=== PATIENT | male | born 1955 | race Caucasian/White ===

== ENCOUNTER 2022-08-23 11:45 | Emergency (ER) | payer MEDICARE ==
[~2022-08-23] VITALS: Ht 182.9 cm; Wt 104.0 kg
[2022-08-23 13:25] VITALS: BP 134/78
== END 2022-08-23 13:20 | disposition home or self-care (01) ==
LOC: ED 11:45
DX: S61.311A Laceration without foreign body of left index finger with damage to nail, initial encounter (principal); S61.313A Laceration without foreign body of left middle finger with damage to nail, initial encounter; S62.631A Displaced fracture of distal phalanx of left index finger, initial encounter for closed fracture; S62.633A Displaced fracture of distal phalanx of left middle finger, initial encounter for closed fracture; W31.2XXA Contact with powered woodworking and forming machines, initial encounter; Y92.009 Unspecified place in unspecified non-institutional (private) residence as the place of occurrence of the external cause

== ENCOUNTER 2023-11-19 06:42 | Day surgery (SDC) | payer MEDICARE ==
[~2023-11-19] VITALS: Ht 177.8 cm; Wt 93.0 kg
[~2023-11-19 06:42] MED LIST: ALLOPURINOL200 MG PO; ATORVASTATIN CA20 MG PO; BAYER ASPIRIN E81 MG PO; FISH OIL1000 M1 PO; LISINOPRIL20 M1 PO; MENS PO; MULTIV PO; TOPROL XL25 M1 PO; VIAGRA100 MG PO
[2023-11-19] MEDS ORDERED: BACITRACIN BASE 15 GM TUBE ONE (06:48)
[2023-11-19] MEDS ORDERED: BUPIVACAINE HCL PF 0.5 % 50 MG/10 ML SDV ONE (06:51)
[2023-11-19] MEDS ORDERED: FAMOTIDINE 10MG/ML 2ML SDV IV ONE (06:56)
[2023-11-19] MEDS ORDERED: LACTATED RINGER'S 1,000 ML IV ONE (06:56)
[2023-11-19] MEDS ORDERED: SODIUM CHLORIDE 0.9% 0 ML IV ONE (07:42)
[2023-11-19] MEDS ORDERED: ceFAZolin Sodium 2 GM/VIAL SDV ONE (07:42)
[2023-11-19] MEDS ORDERED: SODIUM CHLORIDE 0.9% 100 ML IV ONE (07:42)
[2023-11-19 10:22] VITALS: BP 149/78
[2023-11-19] MEDS ORDERED: ROCURONIUM BROMIDE 10 MG/ML 5ML VIAL IV ONE (14:09)
[2023-11-19] MEDS ORDERED: LACTATED RINGER'S 1,000 ML BAG IV ONE (14:09)
[2023-11-19] MEDS ORDERED: PROPOFOL 200 MG/20 ML VIAL IV ONE (14:09)
[2023-11-19] MEDS ORDERED: SUGAMMADEX SODIUM 200 MG/2 ML SDV IV ONE (14:09)
== END 2023-11-19 10:10 | disposition home or self-care (01) ==
LOC: ORM 06:42
PROVIDERS: ATTEND Urology
PROC: 0VBH0ZZ Excision of Bilateral Spermatic Cords, Open Approach (ICD-10-PCS; principal; 2023-11-19)
DX: N43.3 Hydrocele, unspecified (principal); Q55.29 Other congenital malformations of testis and scrotum; I10 Essential (primary) hypertension; E78.5 Hyperlipidemia, unspecified; N48.6 Induration penis plastica; M1A.9XX0 Chronic gout, unspecified, without tophus (tophi); N52.9 Male erectile dysfunction, unspecified; Z79.899 Other long term (current) drug therapy
CPT/HCPCS: J0690